=== PATIENT | female | born 1965 | race Caucasian/White ===

== ENCOUNTER 2020-04-11 08:09 | Outpatient (CLI) | payer OTHER, SELFPAY ==
[2020-04-11 08:45] LABS: Basophils Percent Auto 0.5 % (0.2-1.2); Eosinophils Absolute Auto 0.1 K/mm3 (0-0.3); Eosinophils Percent Auto 1.6 % (0-4.4); Hemoglobin 13.7 g/dL (12.0-15.0); Immature Granulocyte Absolute 0.02 K/mm3 (0.00-0.031); Immature Granulocyte Percent A 0.3 % (0-0.5); Lymphocytes Absolute Auto 2.11 K/mm3 (0.9-3.2); Lymphocytes Percent Auto 27.4 % (18.3-44.2); Mean Corpuscular HGB Conc 34.3 g/dl (32-36); Mean Corpuscular Hemoglobin 29.9 pg (26-34); Mean Corpuscular Volume 87.3 fl (80-100); Mean Platelet Volume 11.2 fl (7.4-10.4); Monocytes Absolute Auto 0.6 K/mm3 (0.1-0.6); Monocytes Percent Auto 7.7 % (2.6-8.5); Neutrophils Absolute Auto 4.8 K/mm3 (1.3-6.7); Neutrophils Percent Auto 62.5 % (45.5-73.1); Platelet Count Result 210 k/mm3 (150-375); Red Blood Count 4.58 M/mm3 (4.2-5.4); Red Cell Distribution Width 12.7 % (11.5-14.5); White Blood Count 7.7 K/mm3 (4.5-10.0)
[2020-04-11 08:57] LABS: Add Urine Microscopic? YES; Appearance Urine Clear (Clear); Bacteria Urine Trace /hpf; Bilirubin Urine Negative (Negative); Blood Urine Negative (Negative); Color Urine Yellow (Yellow); Glucose Urine UA Negative (Negative); Ketones Urine Negative (Negative); Leukocyte Esterase Ur Negative LEU/UL (NEGATIVE); Mucus Urine Rare /lpf; Nitrate Urine Negative (Negative); Protein Urine Negative (Negative); RBC Urine 0-2 /hpf (0-2); Specific Grav Ur 1.029 (1.001-1.035); Squamous Epithelial Cell Urine Many /hpf (Few); Urobilinogen Urine Negative mg/dL (<2.0); WBC Urine 0-3 /hpf (0-3)
[2020-04-11 08:59] LABS: Alanine Aminotransferase 27 U/L (4-35); Albumin Level 3.9 g/dL (3.5-5.1); Alkaline Phosphatase 90 U/L (38-126); Anion Gap 6 mmol/L (8-16); Aspartate Amino Transferase 26 U/L (14-36); Bilirubin,Total 0.7 mg/dL (0.2-1.3); Blood Urea Nitrogen 19 mg/dL (7-17); Calcium 9.3 mg/dL (8.4-10.2); Carbon Dioxide 30 mmol/L (22-30); Chloride 105 mmol/L (98-107); Cholesterol 179 mg/dL (0-200); Estimated Glomerular Filt Rate > 60; Glucose 96 mg/dL (65-105); HDL Direct 30 mg/dL; Potassium 3.8 mmol/L (3.4-5.0); Sodium 141 mmol/L (137-145); Triglycerides 165 mg/dL (<150)
[2020-04-11 09:10] LABS: LDL Cholesterol Direct 108 mg/dL
== END 2020-04-11 08:10 | disposition home or self-care (01) ==
PROVIDERS: PCP Internal Medicine; Visit Provider Internal Medicine
DX: E03.9 Hypothyroidism, unspecified (principal); R53.83 Other fatigue; Z51.81 Encounter for therapeutic drug level monitoring; E55.9 Vitamin D deficiency, unspecified
CPT/HCPCS: 36415; 80053; 80061; 81001; 82306; 84439; 84443; 85025

== ENCOUNTER 2020-12-11 17:00 | Outpatient (RCR) | payer OTHER, SELFPAY ==
--- NOTE | 2020-11-07 09:40 | PTOPEVAL ---
PHYSICAL THERAPY EVALUATION Thank you for referring Traci Alcazar to [facility].? Traci was evaluated for the dx of right knee pain. The patient is scheduled to be seen for therapy? 2 x/week for 4 weeks. Please review, sign, date and return this plan of care SERGIO. I agree with and certify that the following plan of care is medically necessary. Referring Physician Date Attending Provider: Lazaro Gonzales *PT Outpatient Evaluation Start: 11/06/20 16:15 Freq: Status: Active Protocol: Document 11/06/20 16:15 MLV (Rec: 11/06/20 17:12 MLV [id number]) Therapy Assessment Status Assessment Status Assessment Status Evaluation Evaluation Information Problem Diagnosis right knee pain Onset June 2020 Cause none Additional Evaluation Detail Patient began having knee pain with no injury. The pt had no trouble with the knee in the past since childhood surgery until this occasion. The pt reports having a limp prior, due to left hip surgeries, but limp is a little worse now due to current pain. The pt currently has pain off and on but the on is severe and can make her buckle at her knees. Climbing stairs will aggravate the pain. The patient works full time paramedic as RN and spends time with family when off work. Subjective Information Pt works out at home with Query Text:As Reported By Patient/ bands and stopped due to pain Family with squat activities and was walking on the treadmill (30 min/day) until her pain flared. Diagnostic Tests X-Rays For This Problem Yes: mild calcifications in right knee Pain Assessment Timing of Pain Assessment Timing of Pain Assessment Assessment Pain Scale Pain Scale Used Numeric (1 - 10) Self Report Pain Assessment Right Knee(s) Reported Pain Level 1 Pain Description Aching,Sharp Pain Frequency Acute Greatest Pain Intensity 10 Pain Aggravating Factors Stair Climbing,Walking,Weight Bearing/Standing Pain Behaviors Limping Pain Score Pain Score 1: Self Report Interventions Used Interventions Used By Clinicians Education Pain Relief Interventio
--- NOTE | 2020-11-29 07:22 | PCPTNOTE ---
Patient called & cancelled scheduled appointment this date due to being unable to make it.
--- NOTE | 2020-12-11 17:38 | PTOPEVAL ---
PHYSICAL THERAPY DISCHARGE NOTE Thank you for referring Traci Alcazar to [facility].? Please review, sign, date and return this plan of care SERGIO. I agree with and certify that the following plan of care is medically necessary. Referring Physician Date Attending Provider: Lazaro Gonzales Discharge Outpatient Past Medical History Past Medical History Source of Past Medical History Patient Musculoskeletal History Hx Back Pain Yes: back injection x 1 Hx Joint Replacement Yes: right MELISSA x 1, left MELISSA x 2 with bone graft on 2nd sx Hx Orthopedic Surgery Yes: right knee surgeries as a child due to strep, growth plates removed Right Knee(s) Reported Pain Level 4 Pain Description Aching Pain Frequency Acute Greatest Pain Intensity 4 Pain Aggravating Factors Stair Climbing,Walking,Weight Bearing/Standing Pain Behaviors Limping Pain Score Pain Score 4: Self Report Interventions Used Interventions Used By Clinicians Electrical Stimulation,Ice, Taping Pain Relief Interventions Used By Heat,Ice,Inactivity/Rest, Patient Position Change Other Alleviating Interventions ibuprofen Lower Extremity Range of Motion General Lower Extremity Range of Motion Reason Not Measured WFL/Left,WFL/Right Gross Lower Extremity Range of Motion knee active motion: left 0-130 Comments ', right 0-130'; pia. hip rotations WFL's but with generalized stiffness (chronic per pt) Lower Extremity Muscle Strength Testing General Lower Extremity Strength Reason Not Measured WNL/Left,WNL/Right Muscle Length Testing Muscle Length Testing Piriformis w/Hip Flexion <90 Degrees (R) Mild Tightness,(L) Mild Tightness Yen's Test Hip Muscle Length (R) WFL,(L) WFL Left Hamstring Length -32 Query Text:(90 - 90 Position) Right Hamstring Length -30 Query Text:(90 - 90 Position) Muscle Length Testing Comments prone knee flexion left 115', right knee 115' General Exercise General Exercises Side Right Exercise Type Active,Isometric,Stretching Exercise Description seated hamstring stretch, Query Text:Record Sets, Reps, hooklying piriformis stretch, Resistance, and Position calf stretch with green strap, prone quad stretch Exercise Comments . PT Clinical Summary Clinical Summary Protocol: PTEVCODE PT Clinical Summary Mrs. Alcazar is a 55 y/o female
== END 2020-12-12 10:30 | disposition home or self-care (01) ==
LOC: ANHPT 17:00
PROVIDERS: PCP Internal Medicine
DX: M25.561 Pain in right knee (principal)
CPT/HCPCS: 97014; 97110; 97140; 97162; G0283

== ENCOUNTER 2021-03-01 08:11 | Outpatient (CLI) | payer OTHER, SELFPAY ==
--- NOTE | ~2021-03-01 | MM_ITS ---
EXAMINATION: MM screening [facility] BI w sergio HISTORY: Screening TECHNIQUE: Craniocaudal and mediolateral oblique 3-D tomosynthesis images were obtained and synthetic 2-D images were generated. CAD analysis was submitted and interpreted. COMPARISON: Comparison to multiple prior studies sequentially, with oldest reviewed study dated 12/16. BREAST PARENCHYMAL COMPOSITION: Breast composed of scattered areas of fibroglandular density. FINDINGS: No significant change to asymmetry in the upper outer quadrant of the right breast. There is a new radiolucent mass in the upper outer quadrant of the left breast anteriorly. IMPRESSION: 1. New left breast mass, upper outer quadrant anteriorly. 2. Additional mammographic views and possible breast ultrasound are recommended. BI-RADS Category 0: Incomplete: Needs additional imaging evaluation. Reviewed, dictated and finalized at location A. IMPRESSION: 1. New left breast mass, upper outer quadrant anteriorly. 2. Additional mammographic views and possible breast ultrasound are recommended . BI-RADS Category 0: Incomplete: Needs additional imaging evaluation.
== END 2021-03-01 08:12 | disposition home or self-care (01) ==
LOC: ANHIMG 08:15
PROVIDERS: PCP Internal Medicine; Visit Provider Student in an Organized Health Care Education/Training Program
DX: Z12.31 Encounter for screening mammogram for malignant neoplasm of breast (principal); N63.21 Unspecified lump in the left breast, upper outer quadrant
CPT/HCPCS: 77063; 77067

== ENCOUNTER 2021-03-23 11:57 | Outpatient (CLI) | payer OTHER, SELFPAY ==
--- NOTE | ~2021-03-23 | MMUS_ITS ---
EXAMINATION: MM diagnostic tenzin LT w sergio, US breast LT limited HISTORY: New anterior upper outer quadrant left breast mass reported on 03/01/2021 screening mammogram examination TECHNIQUE: Additional 3-D tomosynthesis images of the left breast were performed and synthetic 2-D im ages were generated. CAD analysis was submitted and interpreted. High resolution targeted left upper outer quadrant breast ultrasound was performed. COMPARISON: 03/01/2021 bilateral digital screening mammogram FINDINGS: MAMMOGRAPHIC FINDINGS: Approximately 5 x 7.9 mm opacity is noted anteriorly in the outer mid left breast between approximate ly 2:00 and 3:00 position. ULTRASOUND: 12.8 x 3.8 x 16.7 mm parallel sonolucency is noted at 2:00 3 cm from the nipple; there is no internal vascularity or posterior shadowing. IMPRESSION: 1. Benign finding 2. Routine mammographic screening is recommended BI-RADS Category 2: Benign finding(s). Reviewed, dictated and finalized at location A. IMPRESSION: 1. Benign finding 2. Routine mammographic screening is recommended BI-RADS Category 2: Benign finding(s).
== END 2021-03-23 11:58 | disposition home or self-care (01) ==
PROVIDERS: PCP Internal Medicine; Visit Provider Internal Medicine
DX: N63.21 Unspecified lump in the left breast, upper outer quadrant (principal)
CPT/HCPCS: 76642; 77061; 77065; G0279

== ENCOUNTER 2021-04-10 09:53 | Outpatient (CLI) | payer OTHER, SELFPAY ==
[2021-04-10 10:15] LABS: Basophils Percent Auto 0.6 % (0.2-1.2); Eosinophils Absolute Auto 0.1 K/mm3 (0-0.3); Hematocrit 39.3 % (37.0-47.0); Hemoglobin 13.6 g/dL (12.0-15.0); Immature Granulocyte Absolute 0.01 K/mm3 (0.00-0.031); Immature Granulocyte Percent A 0.1 % (0-0.5); Lymphocytes Absolute Auto 1.83 K/mm3 (0.9-3.2); Lymphocytes Percent Auto 25.8 % (18.3-44.2); Mean Corpuscular HGB Conc 34.6 g/dl (32-36); Mean Corpuscular Hemoglobin 30.3 pg (26-34); Mean Corpuscular Volume 87.5 fl (80-100); Mean Platelet Volume 10.1 fl (7.4-10.4); Monocytes Absolute Auto 0.6 K/mm3 (0.1-0.6); Monocytes Percent Auto 7.9 % (2.6-8.5); Neutrophils Absolute Auto 4.5 K/mm3 (1.3-6.7); Neutrophils Percent Auto 63.6 % (45.5-73.1); Platelet Count Result 248 k/mm3 (150-375); Red Blood Count 4.49 M/mm3 (4.2-5.4); Red Cell Distribution Width 12.8 % (11.5-14.5); White Blood Count 7.1 K/mm3 (4.5-10.0)
[2021-04-10 10:37] LABS: Add Urine Microscopic? YES; Appearance Urine Clear (Clear); Bacteria Urine Trace /hpf; Bilirubin Urine Negative (Negative); Blood Urine Negative (Negative); Color Urine Yellow (Yellow); Glucose Urine UA Negative (Negative); Ketones Urine Negative (Negative); Leukocyte Esterase Ur Negative LEU/UL (Negative); Mucus Urine Rare /lpf; Nitrate Urine Negative (Negative); Protein Urine 1+ mg/dL (Negative); RBC Urine 0-2 /hpf (0-2); Squamous Epithelial Cell Urine Occasional /hpf (Few); Urobilinogen Urine Negative mg/dL (<2.0); WBC Urine 0-3 /hpf
[2021-04-10 10:40] LABS: Alanine Aminotransferase 26 U/L (4-35); Albumin Level 4.2 g/dL (3.5-5.1); Alkaline Phosphatase 86 U/L (38-126); Anion Gap 8 mmol/L (8-16); Aspartate Amino Transferase 25 U/L (14-36); Bilirubin,Total 0.7 mg/dL (0.2-1.3); Blood Urea Nitrogen 18 mg/dL (7-17); Calcium 9.4 mg/dL (8.4-10.2); Carbon Dioxide 28 mmol/L (22-30); Chloride 107 mmol/L (98-107); Cholesterol 173 mg/dL (0-200); Estimated Glomerular Filt Rate > 60; Glucose 102 mg/dL (65-110); HDL Direct 25 mg/dL; Potassium 3.7 mmol/L (3.4-5.0); Sodium 143 mmol/L (137-145); Triglycerides 137 mg/dL (<150)
[2021-04-10 10:50] LABS: LDL Cholesterol Direct 107 mg/dL
[2021-04-10 11:23] LABS: Vitamin D 25 Hydroxy 83.8 ng/mL
== END 2021-04-10 09:54 | disposition home or self-care (01) ==
PROVIDERS: PCP Internal Medicine; Visit Provider Internal Medicine
DX: Z00.00 Encounter for general adult medical examination without abnormal findings (principal)
CPT/HCPCS: 36415; 80053; 80061; 81001; 82306; 84443; 85025

== ENCOUNTER 2022-06-27 07:57 | Outpatient (CLI) | payer OTHER, SELFPAY ==
[2022-06-27 09:18] LABS: Basophils Percent Auto 0.5 % (0.2-1.2); Eosinophils Absolute Auto 0.1 K/mm3 (0-0.3); Eosinophils Percent Auto 1.4 % (0-4.4); Hematocrit 41.5 % (37.0-47.0); Hemoglobin 13.9 g/dL (12.0-15.0); Immature Granulocyte Absolute 0.04 K/mm3 (0.00-0.031); Immature Granulocyte Percent A 0.5 % (0-0.5); Lymphocytes Absolute Auto 2.08 K/mm3 (0.9-3.2); Lymphocytes Percent Auto 25.9 % (18.3-44.2); Mean Corpuscular HGB Conc 33.5 g/dl (32-36); Mean Corpuscular Hemoglobin 29.8 pg (26-34); Mean Corpuscular Volume 88.9 fl (80-100); Mean Platelet Volume 11.3 fl (7.4-10.4); Monocytes Absolute Auto 0.6 K/mm3 (0.1-0.6); Monocytes Percent Auto 7.7 % (2.6-8.5); Neutrophils Absolute Auto 5.2 K/mm3 (1.3-6.7); Platelet Count Result 238 k/mm3 (150-375); Red Blood Count 4.67 M/mm3 (4.2-5.4); Red Cell Distribution Width 13.2 % (11.5-14.5)
[2022-06-27 09:24] LABS: Alanine Aminotransferase 37 U/L (6-35); Albumin Level 4.3 g/dL (3.5-5.1); Alkaline Phosphatase 88 U/L (38-126); Anion Gap 9 mmol/L (8-16); Aspartate Amino Transferase 30 U/L (14-36); Bilirubin,Total 0.8 mg/dL (0.2-1.3); Blood Urea Nitrogen 23 mg/dL (7-17); Calcium 8.8 mg/dL (8.4-10.2); Carbon Dioxide 25 mmol/L (22-30); Chloride 108 mmol/L (98-107); Cholesterol 213 mg/dL (0-200); Estimated Glomerular Filt Rate > 60; Glucose 94 mg/dL (65-110); HDL Direct 34 mg/dL; Potassium 3.8 mmol/L (3.4-5.0); Sodium 142 mmol/L (137-145); Triglycerides 186 mg/dL (<150)
[2022-06-27 09:35] LABS: LDL Cholesterol Direct 117 mg/dL
[2022-06-27 10:12] LABS: Hemoglobin A1C 5.4 % (<5.7)
== END 2022-06-27 07:58 | disposition home or self-care (01) ==
LOC: ANHLAB 08:03
DX: Z00.00 Encounter for general adult medical examination without abnormal findings (principal)
CPT/HCPCS: 36415; 80053; 80061; 83036; 84443; 85025

== ENCOUNTER 2022-07-22 14:34 | Outpatient (CLI) | payer OTHER, SELFPAY ==
--- NOTE | 2022-07-22 | ECHO_ITS ---
Patient Info Name: Traci Zuniga Depagusto Age: 56 years : 1965 Gender: Female Ht: 64 in Wt: 200 lbs BSA: 2.06 m2 HR: 90 bpm BP: 116 / 83 mmHg Heart Rhythm: Sinus Rhythm Technical Quality: Fair Exam Date: 07/22/2022 3:05 PM Exam Location: [facility] Pulmonary Patient Status: Outpatient Admit Date: 07/22/2022 Staff Ordering Physician: Monika John MD Typist: Tabitha Chi RDCS Attending Provider: Monika John MD Exam Type: CA echo doppler color flow Study Info Indications R00.2 - Palpitations Strain analysis performed. Complete two-dimensional, color flow and Doppler transthoracic echocardiogram is performed. Summary 1. Complete two-dimensional, color flow and Doppler transthoracic echocardiogram is performed. 2. Left ventricular chamber dimension is normal. 3. Left ventricular systolic function is normal, estimated at 60-65%. 4. The left ventricular diastolic function is grade I diastolic dysfunction. 5. E/e' 9 is minimally elevated. 6. Global longitudinal strain is normal at -19.0%. 7. No pulmonary hypertension, estimated pulmonary arterial systolic pressure is 28 mmHg. Left Ventricle E/e' 9 is minimally elevated. Global longitudinal strain is normal at -19.0%. Left ventricular chamber dimension is normal. Left ventricular systolic function is normal, estimated at 60-65%. The left ventricular diastolic function is grade I diastolic dysfunction. Right Ventricle Right ventricular chamber dimension is not well visualized. Left Atria Left atrial chamber dimension is normal. Right Atria Right atrial chamber dimension is normal. Aortic Valve The aortic valve is trileaflet. There is no aortic valve stenosis. There is no aortic valve regurgitation. Pulmonic Valve There is no pulmonic regurgitation. Mitral Valve There is no mitral valve stenosis. There is no mitral valve regurgitation. Tricuspid Valve There is no tricuspid valve regurgitation. No pulmonary hypertension, estimated pulmonary arterial systolic pressure is 28 mmHg. Pericardium/Pleural There is no pericardial effusion. Inferior Vena Cava Normal inferior vena cava with >50% collapse upon inspiration consistent with normal right atrial pressure, 5 mmHg. Aorta The aortic root size at the sinus of Valsalva is normal. Left Ventricular Outflow Tract Name Value Normal LVOT 2D LVOT Diameter 2.0 cm LVOT Doppler LVOT Peak Gradient 3 mmHg LVOT Mean Gradient 1 mmHg LVOT VTI 14 cm LVOT VTI/AV VTI Ratio 0.6 LVOT Stroke Volume 42 ml LVOT CO 3.0 l/min LVOT CI 1.5 l/min/m2 Pulmonic Valve Name Value Normal RVOT Doppler RVOT
--- NOTE | 2022-07-26 12:41 | WPDHOLTEREM ---
Holter/Event Monitor Holter/Event Monitor Date of procedure: 07/22/22 Holter/Event Procedure: 48 Hr Holter Monitor Indications: Palpitations Conclusion: 1. 48 hour holter monitor on 07/22/22. 2. Underlying rhythm is sinus rhythm with sinus arrhythmia. HR range 47-140 bpm; average HR 76 bpm. 3. There is 1 premature supraventricular complex. No supraventricular tachycardia. 4. There are 3,812 premature ventricular complexes, 216 ventricular trigeminy. No ventricular tachycardia. 5. No sinoatrial or atrioventricular blocks. No significant pauses greater than 2 seconds. 6. Patient reports symptoms of fluttering, skipped beats which demonstrate sinus rhythm, HR range 74-85 bpm.
== END 2022-07-22 14:35 | disposition home or self-care (01) ==
LOC: ANHCARD 14:37
DX: I51.9 Heart disease, unspecified (principal)
CPT/HCPCS: 93225; 93226; 93306

== ENCOUNTER 2023-02-14 08:19 | Outpatient (CLI) | payer OTHER, SELFPAY ==
--- NOTE | ~2023-02-14 | MM_ITS ---
EXAMINATION: MM screening [facility] BI w sergio HISTORY: Screening TECHNIQUE: Craniocaudal and mediolateral oblique 3-D tomosynthesis images were obtained and synthetic 2-D images were generated. CAD analysis was submitted and interpreted. COMPARISON: Comparison to multiple prior studies sequentially, with oldest reviewed study dated 12/16. BREAST PARENCHYMAL COMPOSITION: There are scattered areas of fibroglandular density. FINDINGS: There is no evidence of suspicious mass, calcification, or architectural distortion to sugg est malignancy in either breast. There has been no suspicious interval change. IMPRESSION: 1. No mammographic evidence of malignancy. 2. Recommend routine screening mammography in one year. BI-RADS Category 1: Negative Reviewed, dictated and finalized at location A.
== END 2023-02-14 08:20 | disposition home or self-care (01) ==
PROVIDERS: PCP Family Medicine; Visit Provider Obstetrics & Gynecology
DX: Z12.31 Encounter for screening mammogram for malignant neoplasm of breast (principal)
CPT/HCPCS: 77063; 77067

== ENCOUNTER 2023-05-05 08:06 | Outpatient (CLI) | payer OTHER, SELFPAY ==
[2023-05-05 08:48] LABS: Basophils Absolute Auto 0.1 K/mm3 (0.0-0.1); Basophils Percent Auto 0.8 % (0.2-1.2); Eosinophils Absolute Auto 0.1 K/mm3 (0-0.3); Eosinophils Percent Auto 1.7 % (0-4.4); Hematocrit 41.4 % (37.0-47.0); Hemoglobin 13.6 g/dL (12.0-15.0); Immature Granulocyte Absolute 0.02 K/mm3 (0.00-0.031); Immature Granulocyte Percent A 0.3 % (0-0.5); Lymphocytes Absolute Auto 1.65 K/mm3 (0.9-3.2); Lymphocytes Percent Auto 25.1 % (18.3-44.2); Mean Corpuscular HGB Conc 32.9 g/dl (32-36); Mean Corpuscular Hemoglobin 29.1 pg (26-34); Mean Corpuscular Volume 88.7 fl (80-100); Monocytes Absolute Auto 0.5 K/mm3 (0.1-0.6); Monocytes Percent Auto 7.1 % (2.6-8.5); Neutrophils Absolute Auto 4.3 K/mm3 (1.3-6.7); Platelet Count Result 213 k/mm3 (150-375); Red Blood Count 4.67 M/mm3 (4.2-5.4); Red Cell Distribution Width 13.2 % (11.5-14.5); White Blood Count 6.6 K/mm3 (4.5-10.0)
[2023-05-05 08:57] LABS: Potassium 3.6 mmol/L (3.4-5.0)
[2023-05-05 09:01] LABS: Alanine Aminotransferase 25 U/L (6-35); Albumin Level 4.1 g/dL (3.5-5.1); Alkaline Phosphatase 70 U/L (38-126); Anion Gap 5 mmol/L (8-16); Aspartate Amino Transferase 25 U/L (14-36); Blood Urea Nitrogen 18 mg/dL (7-17); Calcium 9.1 mg/dL (8.4-10.2); Carbon Dioxide 28 mmol/L (22-30); Chloride 106 mmol/L (98-107); Cholesterol 182 mg/dL (0-200); Estimated Glomerular Filt Rate > 60; Glucose 94 mg/dL (65-110); HDL Direct 27 mg/dL; Sodium 139 mmol/L (137-145); Triglycerides 173 mg/dL (<150)
[2023-05-05 09:09] LABS: LDL Cholesterol Direct 102 mg/dL
== END 2023-05-05 08:07 | disposition home or self-care (01) ==
LOC: ANHLAB 08:09
PROVIDERS: PCP Family Medicine; Visit Provider Family Medicine
DX: Z00.00 Encounter for general adult medical examination without abnormal findings (principal)
CPT/HCPCS: 36415; 80053; 80061; 83036; 85025

== ENCOUNTER 2023-05-12 10:08 | Outpatient (CLI) | payer OTHER, SELFPAY ==
--- NOTE | ~2023-05-12 | XR_ITS ---
Lumbosacral Spine: AP, oblique, and lateral views Clinical History: Pain Findings: The normal lordotic curve is maintained. No fracture evident. There is 18 mm anterolisthesi s of L4 over L5. There are underlying bilateral L4 pars interarticularis defects. There is moderate f acet arthropathy throughout the lumbar spine. There is advanced degenerative disc narrowing at L4-L5. The sacroiliac joints are normally outlined. Impression: No significant abnormality. Bilateral L4 pars interarticularis defects, with 18 mm anterolisthesis of L4 over L5. Advanced degenerative disc narrowing at L4-L5. Moderate facet arthropathy throughout the lumbar spine. Reviewed, dictated and finalized at location . MOTIVE EXHAUST EMISSIONS TECHNICIAN Impression: No significant abnormality. Bilateral L4 pars interarticularis defects, with 18 mm anterolisthesis of L4 over L5. Advanced degenerative disc narrowing at L4-L5. Moderate facet arthropathy throughout the lumbar spine.
--- NOTE | ~2023-05-12 | XR_ITS ---
AP and lateral views of the right hip Clinical history: Pain Findings: No acute fracture or dislocation is seen. Right hip arthroplasty in place. No hardware comp lication is evident. Soft tissues are unremarkable. Impression: No acute abnormality seen. Right hip arthroplasty in place. Reviewed, dictated and finalized at location . ATIONAL PROGRAM DIRECTOR Impression: No acute abnormality seen. Right hip arthroplasty in place.
== END 2023-05-12 10:09 | disposition home or self-care (01) ==
LOC: ANHIMG 10:10
PROVIDERS: PCP Family Medicine; Visit Provider Family Medicine
DX: M54.50 Low back pain, unspecified (principal); M43.16 Spondylolisthesis, lumbar region; Z96.641 Presence of right artificial hip joint
CPT/HCPCS: 72110; 73502

== ENCOUNTER 2023-11-21 12:13 | Emergency (ER) | payer OTHER, SELFPAY ==
--- NOTE | ~2023-11-21 | XR_ITS ---
Clinical Indication: Chest pain PA and lateral views of the chest: Comparison: 09/20/2015 Findings: The lungs are clear, without evidence of focal consolidation or pleural effusion. Cardiome diastinal silhouette is within normal limits. Bones and soft tissues are unremarkable. Impression: Normal chest. Reviewed, dictated and finalized at location . Impression: Normal chest.
--- NOTE | ~2023-11-21 | CT_ITS ---
Clinical Indication: Chest pain CT Scan of the Chest with Contrast: Technique: Contiguous sections were acquired throughout the chest after intravenous administration of 100 cc of Omnipaque 350. Dose reduction technique was used on this scan by utilizing automated expos ure control and iterative reconstruction technique. The dose-length product (DLP) was 773.78 mGy-cm. Findings: There is no evidence of any significant mediastinal, hilar or axillary lymphadenopathy. There is no f illing defect in the pulmonary arterial tree to suggest pulmonary embolus. There is no evidence of ao rtic dissection or aneurysm. There is no evidence of pleural or pericardial effusion. The lungs are clear. No pulmonary nodules or infiltrates are noted. Images through the upper abdomen reveal no abnormalities. Impression: No evidence of pulmonary embolus, aortic dissection, or aortic aneurysm. Clear lungs. Reviewed, dictated and finalized at [facility]. Impression: No evidence of pulmonary embolus, aortic dissection, or aortic aneurysm. Clear lungs.
--- NOTE | 2023-11-21 12:15 | ECG_ITS ---
SEE SCANNED COPY FOR CONFIRMED REPORT MTDD
[2023-11-21 12:17] VITALS: BP 136/82; PULSE 68; RESP 17; TEMP 36.7; O2SAT 99
[2023-11-21 12:27] VITALS: PULSE 60
[2023-11-21 12:38] LABS: Basophils Percent Auto 0.6 % (0.2-1.2); Eosinophils Absolute Auto 0.1 K/mm3 (0-0.3); Eosinophils Percent Auto 1.2 % (0-4.4); Hematocrit 43.1 % (37.0-47.0); Hemoglobin 14.6 g/dL (12.0-15.0); Immature Granulocyte Absolute 0.01 K/mm3 (0.00-0.031); Immature Granulocyte Percent A 0.1 % (0-0.5); Lymphocytes Absolute Auto 2.13 K/mm3 (0.9-3.2); Lymphocytes Percent Auto 31.6 % (18.3-44.2); Mean Corpuscular HGB Conc 33.9 g/dl (32-36); Mean Corpuscular Hemoglobin 29.7 pg (26-34); Mean Corpuscular Volume 87.6 fl (80-100); Mean Platelet Volume 11.3 fl (7.4-10.4); Monocytes Absolute Auto 0.6 K/mm3 (0.1-0.6); Monocytes Percent Auto 8.2 % (2.6-8.5); Neutrophils Absolute Auto 3.9 K/mm3 (1.3-6.7); Neutrophils Percent Auto 58.3 % (45.5-73.1); Platelet Count Result 228 k/mm3 (150-375); Red Blood Count 4.92 M/mm3 (4.2-5.4); Red Cell Distribution Width 12.9 % (11.5-14.5); White Blood Count 6.7 K/mm3 (4.5-10.0)
[2023-11-21 12:43] LABS: Alanine Aminotransferase 25 U/L (6-35); Albumin Level 4.6 g/dL (3.5-5.1); Alkaline Phosphatase 81 U/L (38-126); Anion Gap 8 mmol/L (4-12); Aspartate Amino Transferase 27 U/L (14-36); Blood Urea Nitrogen 22 mg/dL (7-17); Calcium 9.4 mg/dL (8.4-10.2); Carbon Dioxide 25 mmol/L (22-30); Chloride 107 mmol/L (98-107); Estimated CRCL calculation 82 ml/min; Estimated Glomerular Filt Rate > 60; Glucose 99 mg/dL (65-110); Lipase 136 U/L (23-300); Potassium 3.4 mmol/L (3.4-5.0); Sodium 140 mmol/L (137-145)
[2023-11-21 12:50] LABS: INR 0.9; Prothrombin Time 12.8 Seconds (11.1-14.7)
[2023-11-21 12:51] LABS: Partial Thromboplastin Time 29.4 Seconds (22.3-36.8)
[2023-11-21 12:55] LABS: Troponin I < 0.012 ng/mL (0.000-0.034)
[2023-11-21 12:58] LABS: D Dimer 0.61 ug/mL (<0.48)
[2023-11-21] MEDS: KETOROLAC 15 MG/ML VIAL (*BKC) IV PUSH (13:07)
[2023-11-21 14:00] VITALS: BP 107/70; PULSE 56; RESP 16; O2SAT 99
--- NOTE | 2023-11-21 14:09 | ED.CHESTPAIN ---
HPI - Chest Pain General Chief Complaint: Chest Pain Stated Complaint: chest pain Time Seen by Provider: 11/21/23 12:15 Source: patient Mode of arrival: ambulatory Limitations: no limitations History of Present Illness HPI narrative: 58-year-old with a history of hypertension status post gallbladder disease, hip replacement here with complaints of sudden onset of right-sided chest pain. Patient states that 2 was trying to pick something up from the floor developed a sudden onset of pain which made her short of breath as well as nauseated. She denies any fever or chills no history of cough. No previous history of CAD. Related Data Home Medications Medication Instructions Recorded Confirmed cholecalciferol (vitamin D3) 50 50 mcg PO DAILY 12/28/19 01/30/23 mcg (2,000 unit) capsule losartan 50 mg-hydrochlorothiazide 1 tablet PO DAILY 12/28/19 01/30/23 12.5 mg tablet ascorbate calcium (vitamin C) 500 500 mg PO DAILY 01/30/23 01/30/23 mg tablet Allergies Allergy/AdvReac Type Severity Reaction Status Date / Time No Known Allergies Allergy Verified 11/21/23 12:27 Review of Systems Review of Systems: All systems reviewed & are unremarkable except as noted in HPI and below Constitutional: Constitutional: Reports no additional constitutional complaints Eyes: Eyes: Reports no additional eye complaints ENT: Reports system reviewed and no additional complaints, except as documented Cardiovascular: Cardiovascular: Reports as per HPI Respiratory: Respiratory: Reports no additional respiratory complaints Gastrointestinal: Gastrointestinal: Reports no additional gastrointestinal complaints Musculoskeletal: Musculoskeletal: Reports no additional musculoskeletal complaints Neurologic: Reports system reviewed and no additional complaints, except as documented [facility] Past Medical History Medical History Arthritis Hypertension Migraines Surgical History Surgical History History of hip replacement History of tubal ligation Previous section x 2 Family History Family History Father Hypertension, Onset Age: 62 Mother Cerebrovascular accident Other Family history of malignant neoplasm of breast Social History Social History Smoking status: Never smoker Second hand tobacco smoke exposure: No Alcohol intake: never Substance use: never Lack of Transportation: No Current Housing: I Have Housing Concerned About Future Housing: No Difficulty Paying Gas/Electric Bills: No Difficulty Paying for Meds: No Currently Unemployed: No Education: Master's Degree or Higher Difficulty w/ Childcare or Family Care: No Living arrangements: with family Occupation/Education: occupation Gender identity (if verbalized by the patient): Female Sexual Orientation (if Verbalized by the Patient): Straight or Heterosexual Spiritual care concerns: No Agree to blood products: Yes Exam Narrative: GENERAL: Well-appearing, well-nourished, and in no acute distress. HEAD: Normocephalic, atraumatic. EYES: PERRLA and EOMI. ENT: Nares clear, no rhinorrhea or epistaxis. Mucous membranes moist. NECK: Supple. CHEST: Clear to auscultation. No respiratory distress. HEART: Regular rate and rhythm. No murmur heard. Normal peripheral pulses. ABDOMEN: Soft, nontender, nondistended, normal active bowel sounds. EXTREMITIES: Normal range of motion. No edema. SKIN: Warm, dry, no rash. NEURO: No focal deficits. Alert and oriented x3. PSYCH: Normal mood and affect. Course Course Emergency Course: Patient is given IV Toradol pain slightly improved did inform her and has been about her lab work, CT findings she declined any opioid this time. She feels comfortable going home most lik
== END 2023-11-21 14:27 | disposition home or self-care (01) ==
PROVIDERS: Emergency Provider Family Medicine; PCP Family Medicine
DX: R07.9 Chest pain, unspecified (principal); I10 Essential (primary) hypertension; Z96.649 Presence of unspecified artificial hip joint
CPT/HCPCS: 36415; 71046; 71275; 80053; 83690; 84484; 85025; 85380; 85610; 85730; 93005; 96374; 99284; J1885; Q9967

== ENCOUNTER 2024-02-13 11:30 | Emergency (ER) | payer OTHER, SELFPAY ==
[2024-02-13 11:51] VITALS: BP 129/87; PULSE 90; RESP 18; TEMP 36.8; O2SAT 98
[2024-02-13 11:54] VITALS: BP 129/87; PULSE 90; RESP 18; TEMP 36.8; O2SAT 98
--- NOTE | 2024-02-13 12:09 | ED.EYEPROB ---
HPI - Eye Problem General Chief complaint: Eye Problems Stated complaint: RT Eye swelling Time Seen by Provider: 02/13/24 11:55 Source: patient Mode of arrival: ambulatory Limitations: no limitations History of Present Illness HPI Narrative: Traci is a 58-year-old female presents today with complaints right eyelid swelling and irritation x3 days. She had corrective eye lenses replacement surgery at the end of November. She states she recently started using new mascara when she noticed her right upper eyelid was becoming more irritated so she stopped using it. She also thought it might of been allergies and has been taking allergy medicine without improvement. She denies any excessive tearing, discharge, or visual changes. Related Data Home Medications Medication Instructions Recorded Confirmed cholecalciferol (vitamin D3) 50 50 mcg PO DAILY 12/28/19 01/30/23 mcg (2,000 unit) capsule losartan 50 mg-hydrochlorothiazide 1 tablet PO DAILY 12/28/19 01/30/23 12.5 mg tablet ascorbate calcium (vitamin C) 500 500 mg PO DAILY 01/30/23 01/30/23 mg tablet Allergies Allergy/AdvReac Type Severity Reaction Status Date / Time No Known Allergies Allergy Verified 02/13/24 11:53 Review of Systems Review of Systems: Pertinent positives per HPI. Patient denies any fever, chills, rash, headache, visual changes, dizziness, cough, runny nose, sore throat, shortness of breath, chest pain, palpitations, nausea, vomiting, diarrhea, constipation, abdominal pain, or any urinary issues. [facility] Past Medical History Medical History Arthritis Hypertension Migraines Surgical History Surgical History History of hip replacement History of tubal ligation Previous section x 2 Family History Family History Father Hypertension, Onset Age: 62 Mother Cerebrovascular accident Other Family history of malignant neoplasm of breast Social History Social History Smoking status: Never smoker Second hand tobacco smoke exposure: No Alcohol intake: never Substance use: never Lack of Transportation: No Current Housing: I Have Housing Concerned About Future Housing: No Difficulty Paying Gas/Electric Bills: No Difficulty Paying for Meds: No Currently Unemployed: No Education: Master's Degree or Higher Difficulty w/ Childcare or Family Care: No Living arrangements: with family Occupation/Education: occupation Gender identity (if verbalized by the patient): Female Sexual Orientation (if Verbalized by the Patient): Straight or Heterosexual Spiritual care concerns: No Agree to blood products: Yes Comments At the time of my signature, I reviewed and agree with the nursing past medical, surgical, social, and family history. There is no relevant family history pertinent to the patient complaint. Exam Narrative: General: Well-developed, well nourished, in no apparent distress Head: Normocephalic, atraumatic Eyes: Pupils equally round and reactive to light bilaterally, EOM intact, sclera and conjunctive clear, no discharge, right upper eyelid erythematous with mild crusting and swelling. Neck: Supple, trachea midline. Course Course Emergency Course: Portions of this record may have been created with voice recognition software. Level of Care: Express Care Visit Vital Signs Vital signs: Vital Signs Temperature 36.8 C 02/13/24 11:51 Pulse Rate 90 02/13/24 11:51 Respiratory Rate 18 02/13/24 11:51 Blood Pressure 129/87 02/13/24 11:51 Pulse Oximetry 98 02/13/24 11:51 Oxygen Delivery Room Air 02/13/24 11:51 Temperature 36.8 C 02/13/24 11:54 Pulse Rate 90 02/13/24 11:54 Respiratory Rate 18 02/13/24 11:54 Blood Pressur
== END 2024-02-13 12:15 | disposition home or self-care (01) ==
PROVIDERS: Emergency Provider Nurse Practitioner Family; PCP Family Medicine
DX: H01.001 Unspecified blepharitis right upper eyelid (principal); I10 Essential (primary) hypertension; M19.90 Unspecified osteoarthritis, unspecified site
CPT/HCPCS: 99213; G0463

== ENCOUNTER 2024-09-07 09:34 | Outpatient (CLI) | payer OTHER, SELFPAY ==
[2024-09-07 10:23] LABS: Hematocrit 42.4 % (37.0-47.0); Hemoglobin 14.2 g/dL (12.0-15.0); Mean Corpuscular HGB Conc 33.5 g/dl (32-36); Mean Corpuscular Hemoglobin 29.4 pg (26-34); Mean Corpuscular Volume 87.8 fl (80-100); Mean Platelet Volume 11.5 fl (7.4-10.4); Platelet Count Result 215 k/mm3 (150-375); Red Blood Count 4.83 M/mm3 (4.2-5.4); Red Cell Distribution Width 12.8 % (11.5-14.5); White Blood Count 6.7 K/mm3 (4.5-10.0)
--- OUTSIDE RECORDS SUMMARY | 2024-09-07 10:31 | XMS_ITS | Encounter Summary ---
Author Organization [facility] Address [address] [place] [address] Care Team Providers Care Endo Tech Name Role Phone Unavailable Primary Care Provider Unavailabl e Encounter Details Date Type Department Care Team (Late st Contact Info) Description 12/10/2004 Outpatient Historical [facility] 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
--- OUTSIDE RECORDS SUMMARY | 2024-09-07 10:31 | XMS_ITS | Patient Health Record ---
Author Organization [facility] Address [address] [place] [address] Care Team Providers Care Lamp Tester And Inspector Name Role Phone Sandeep (Retired) Bubba CROCKER Primary Care Provider Unavailable DIVYA CROCKER, LYNN Unavailable REASON FOR REFERRAL No Information PLAN OF TREATMENT Pending Test Test Name Order Date Colonoscopy 10/14/2018 Insurance Providers Payer Name Payer Address Payer Phone Subscriber Number Group Number Insured Name Patient Relationship to Insured Coverage Start Date Coverage End Date [facility] [address] [address] [place], [place] [id number] Traci Alcazar Self - patient is the insured
--- OUTSIDE RECORDS SUMMARY | 2024-09-07 10:31 | XMS_ITS | Encounter Summary ---
Author Organization [facility] Address [address] [place] [address] Care Team Providers Care Truck Repair Supervisor Name Role Phone Unavailable Primary Care Provider Unavailabl e Encounter Details Date Type Department Care Team (Late st Contact Info) Description 12/10/2004 Outpatient Historical [facility] Internal Medicine 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
--- OUTSIDE RECORDS SUMMARY | 2024-09-07 10:31 | XMS_ITS | Encounter Summary ---
Author Organization [facility] Address [address] [place] [address] Care Team Providers Care Hospice Consultant Name Role Phone Unavailable Primary Care Provider Unavailabl e Encounter Details Date Type Department Care Team (Late st Contact Info) Description 12/03/2004 Outpatient Historical [facility] Internal Medicine 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
--- OUTSIDE RECORDS SUMMARY | 2024-09-07 10:31 | XMS_ITS | Clinical Summary ---
Author Organization [facility] A Address [address] [place] [address] Care Team Providers Care Post Adoption Coordinator Name Role Phone Monika Llanos MD Primary Care Provide r Allergies No known active allergies Medications cholecalciferol (VITAMIN D3) 4,000 unit capsule 1 po daily 0 0 06/01/2015 Active MULTIVIT 11-[id number] 6-DHA ORAL Take by mouth Active losartan-hydroCH LOROthiazide (HYZAAR) 50-12.5 mg per tablet TAKE 1 TABLET BY MOUTH DAILY 90 tablet 3 04/30/2023 Active cyclobenzaprine (FLEXERIL) 5 mg tablet Take 1 tablet (5 mg total) by mouth 3 (three) times a day as needed for muscle spasms for up to 15 days 30 tablet 05/08/2023 Active Active Problems Problem Noted Date Diagnosed Date Acute right-sided low back pain without sciatica 05/08/2023 Assessment & Plan (05/08/2023 8:31 AM BIOTECHNOLOGIST): New concern 2/2 muscle spasm Will get xray of the lumbar spine and right hip Sent flexeril 5mg Continue with heat and ibuprofen F/u in 2 months, if no improvement will get an MRI and refer to pain management Palpitations 07/04/2022 Assessment & Plan (08/27/2022 5:11 PM BIOTECHNOLOGIST): Will get records for holter and echo Recommend starting the metoprolol Still having palpitations Referral to cardio given Assessment & Plan (07/04/2022 6:28 PM BIOTECHNOLOGIST): New, worsening EKG in office showed PVCs 48hr holter monitor and echo Start metoprolol 12.5mg bid F/u in 2 weeks Pending results can consider cardio referral and stress test Encounter for wellness examination 05/06/2022 Assessment & Plan (05/07/2023 2:56 PM BIOTECHNOLOGIST): Labs reviewed and discussed Flu:gets through her job Colonoscopy:uptodate Pap smear:follows with ob Mammo:follows with ob F/u in 1 year for annual Assessment & Plan (05/07/2022 8:58 AM BIOTECHNOLOGIST): Ordered CBC, cmp, lipid, hgb a1c, TSH, and free t4 Flu:gets through her job Colonoscopy:uptodate Pap smear:follows with ob Mammo:follows with ob F/u in 1 year for annual Essential hypertension 09/22/2017 Assessment & Plan (05/07/2023 2:55 PM BIOTECHNOLOGIST): Bp in the office today BP Readings from Last 1 Encounters: 08/26/22 120/70 Continue current regimen of losartan hctz 50 12.5mg daily and metoprolol 12.5mg twice a day Recommend DASH diet, heart-healthy lifestyle, exercise. Discussed the risks of hypertension. F/u in 6 months Assessment & Plan (08/26/2022 3:21 PM BIOTECHNOLOGIST): Bp in the office today BP Readings from Last 1 Encounters: 08/26/22 120/70 Continue current regimen Recommend DASH diet, heart-healthy lifestyle, exercise. Discussed the risks of hypertension. F/u at annual Assessment & Plan (05/07/2022 8:44 AM BIOTECHNOLOGIST): Bp in the office today BP Readings from Last 1 Encounters: 05/01/21 122/80 Continue current regimen of losartan hctz 50 12.5mg daily Recommend DASH diet, heart-healthy lifestyle, exercise. Discussed the risks of hypertension. F/u in 1 year for annual Assessment & Plan (09/22/2017 2:28 PM CDT): Blood pressure is slightly higher in office today than ideal. Recommended close follow-up outpatient regarding any signs or symptoms of hypertension. Continue losartan with hydrochlorothiazide as previously recommended along with low- sodium diet heart healthy exercise as tolerated BMI 34.0-34.9,adult 09/22/2017 Assessment & Plan (05/08/2023 8:32 AM BIOTECHNOLOGIST): She was counseled on the importance of maintaining a healthy weight and the risks of obesity. Weight loss recommended. Encourage 150min/ week of exercise Encourage 1500 calories in a day for weight loss Assessment & Plan (06/09/2018 11:41 AM BIOTECHNOLOGIST): Heart healthy diet, increasing exercise (after this acute tendinitis as limited excessive weight bearing/exercise was amused at this time) to assist with overall heart health and weight control Assessment & Plan (09/22/2017 2:28 PM CDT): Recommended patient to continue to increase heart healthy diet with adequate fruits, vegetables, and plenty of water along with mild-moderate daily exercise as tolerated. Generalized osteoarthritis 11/13/2013 Overview (10/03/2016): GENERAL OSTEOARTHROSIS Resolved Problems Problem Noted Date Diagnosed Date Resolved Date Right maxillary sinusitis 01/27/2019 Assessment & Plan (01/27/2019 12:02 PM CDT): Initiating Augmentin therapy with prednisone burst, cold compresses, OTC Flonase or Nasacort, and ibuprofen or acetaminophen to assist with acute discomfort/sinus pain as well. I did encourage her to F/U in office with persistent or little improvement sx after 48 hours antibiotics. Use OTC Telugu yogurt or probiotics with antibiotic course was advised. Right ankle tendonitis 06/09/201804/14 Assessment & Plan (06/09/2018 11:35 AM BIOTECHNOLOGIST): Possible achilles tenopathy uncertain etiology. Labs ordered evaluating for possible muscle damage/inflammation, leukocytosis indicating possible infection, uric acid level as well. Also recommending ultrasound over MRI at this time for more acute evaluation of the tendon itself close follow-up outpatient regarding results of all testing indication for need for additional management. In the interim I did recommend RICE therapy, bracing/compression, naproxen with food twice daily, and certainly with any worsening little improvement in her symptoms with previous recommendations encouraged to call office for possible corticosteroid therapy until diagnostics received. Acute URI 09/22/2017 11/05/2017 Assessment & Plan (09/22/2017 2:29 PM CDT): Considering rapid strep is negative clinical presentation does correlate with possible strep pharyngitis recommended throat culture for further evaluation. In the interim I did recommend amoxicillin 875 twice daily for 10 day course certainly close monitoring outpatient we will follow up with her regarding the results of the throat culture need for changes in our management. Salt water gargles, use of humidifier at night, and then throat lozenges were recommended certainly pushing fluids as well follow-up as needed regarding condition in office Arthralgia of hip 08/03/2014 11/05/2017 Notalgia 08/03/2014 11/05/2017 Migraine 01/11/2014 11/05/2017 Overview (10/03/2016): MIGRNE UNSP WO NTRC MGRN Vitamin D deficiency 11/13/2013 018 Overview (10/03/2016): VITAMIN D DEFICIENCY NOS Immunizations Immunization Administration Dates Next Due Influenza, Quadrivalent, Spl it, Intramuscular 05/10/2016 Influenza, Trivalent, IM (MDV) 03/30/2012,2010 Influenza, Unspecified 08/26/2022(Deferr ed: Patient Refused),07/04/2022(Deferred: Patient Refused),05/07/2022(Deferred: Patient Refused),01/28/2022(Deferred: Patient Refused),01/28/2022(Deferred: Patient Refused),05/01/2021(Deferred: Patient Refused),04/10/2021,04/11/2020, 020,03/30/2019,04/27/2018,09/22/2017(D eferred: Patient ill today) Tdap 03/10/2008 ZOSTER Recombinant 11/17/2020,08/03/2020 Surgical History Surgery Date Site/Laterality Comments OTHER SURGICAL HISTORY rt knee surg CHOLECYSTECTOMY Cholecystectomy SECTION x2 section OTHER SURGICAL HISTORY pia Hip replacement L 1998, R 2005 EPIDURAL INJECTION LUMBOSACRAL 08/10/2014 N/A JOINT REPLACEMENT SECTION HIP SURGERY Left MELISSA/MELISSA REV HIP SURGERY 06/30/2005 - 06/29/2006 Right MELISSA Medical History Medical History Date Comments Hx Other Medical 01-ORTHO Hx Other Medical hip replacement left 2014 bj; Comments: total hip and bone grafting Hypertension Migraines Obesity Family History Medical History Relation Name Comments Heart attack Father Myocardial infa rction; Cause of : Myocardial infarction Heart disease Father Lupus Father Other Neg Hx No history of C ancer; Relation Name Status Comments Father (Age 62) Social History Tobacco Use Types Packs/Day Years Used Date Smoking Tobacco: Never Smokeless Tobacco: Never Tobacco Cessation:Counseling Given: Not Answered Alcohol Use Standard Drinks/Week Comments No 0 (1 standard drink = 0.6 oz pur e alcohol) PHQ-2 Answer Date Recorded PHQ-2 Total Score (If total score is 3 or more points, staff should administer the PHQ-9) 0 08/26/2022 Comments Unknown Sex and Gender Information Value Date Recorded Sex Assigned at Not on file Legal Sex Female 2:21 PM BIOTECHNOLOGIST Gender Identity Not on file Sexual Orientation Not on file 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 file Not on file Obstetrics History Last Filed Vital Signs Vital Sign Reading Time Taken Comments Blood Pressure 102/70 05/08/2023 8:01 AM BIOTECHNOLOGIST Pulse 82 05/08/2023 8:01 AM BIOTECHNOLOGIST Temperature 37.1 C (98.8 F) 05/08/2023 8:01 AM BIOTECHNOLOGIST Respiratory Rate 16 05/08/2023 8:01 AM BIOTECHNOLOGIST Oxygen Saturation 98% 05/08/2023 8:01 AM BIOTECHNOLOGIST Inhaled Oxygen Concentration - - Weight 87.5 kg (193 lb) 05/08/2023 8:01 AM BIOTECHNOLOGIST Height 160 cm (5' 3 ) 05/08/2023 8:01 AM BIOTECHNOLOGIST Body Mass Index 34.19 05/08/2023 8:01 AM BIOTECHNOLOGIST Plan of Treatment Health Maintenance Due Date Last Done Comments Cervical Cancer Screening 1965 Hepatitis C Screening 1965 Hepatitis B Screening 1983 Osteoporosis Screening-Bone Density Scan 11/10/2013 11/11/2011, 11/11/2011 DTaP/Tdap/Td Vaccine (2 - Td or Tdap) 03/10/2018 03/10/2008 Breast Cancer Screening-Mammogram 02/15/2024 02/14/2023, 03/01/2021, 10/01/2018, Additional history exists Influenza Vaccine (#1) 2024 , 04/11/2020, 04/10/2020, Additional history exists Depression Screening 05/08/2024 05/08/2023, 08/26/2022, 07/04/2022, Additional history exists Regular Well Visit/Exam 18-64 05/08/2024 05/08/2023, 05/07/2022, 05/01/2021, Additional history exists Colon Cancer Screening-Colonoscopy 12/09/2028 12/09/2018 Colon Cancer Screening-CT Colonography Discontinued 12/09/2018 Colon Cancer Screening-DNA Stool Discontinued 12/09/2018 Colon Cancer Screening-FIT Discontinued 12/09/2018 Colon Cancer Screening-Sigmoidoscopy Discontinued 12/09/2018 Zoster Vaccine Completed 11/17/2020, 08/03/2020 Pneumococcal vaccine <65 Aged Out No longer eligible based on patient's age to complete this topic Procedures Procedure Name Priority Date/Time Associated Diagnosis Comments SCREENING MAMMOGRAM BILATERAL W ASHER Schedule Routine, Read Routine (OP Routine) 02/14/2023 COLONOSCOPY Routine 12/09/2018 DEXA SCAN Routine 11/11/2011 from Last 3 Months or Most Recently Relevant to Health Maintenance Results * Screening Mammogram Bilateral W Asher (02/14/2023) Anatomical Region Laterality Modality Breast Bilateral Mammography us Generic External Data Provider IMG MAMMO PROCEDU RES Final Result * Colonoscopy (12/09/2018) Anatomical Region Laterality Modality Other us Historical Provider ENDOSCOPY PROCEDURES Sally l Result * DEXA SCAN (11/11/2011) HM DEXA Scan Normal us Historical Provider HEALTH MAINTENANCE Final Result from Last 3 Months or Most Recently Relevant to Health Maintenance Insurance [facility] Address: [place] [address] [facility] Address: [place] [address] [facility] Address: [address] [address] Care Teams Post Adoption Coordinator Relationship Specialty Start Date End Date Monika Llanos MD [address] [place] [address] [place] [address] PCP - General Family Medicine 01/14/22
--- OUTSIDE RECORDS SUMMARY | 2024-09-07 10:31 | XMS_ITS | Encounter Summary ---
Author Organization [facility] Address [address] [place] [address] Care Team Providers Care Scallop Raker Name Role Phone Bubba Hopkins MD Primary Care Provider [phone] Bubba Hopkins MD Primary Care Provider [phone] Bubba Hopkins MD Primary Care Provider [phone] Monika Llanos MD Primary Care Provide r Reason for Referral * Diagnostic Imaging (Routine) - Closed Specialty Diagnoses / Procedures Referred By Contac t Referred To Contact Procedures Dexa Axial Skeleton Bone Density 1 or 2 Site [facility] Health Information Management [address] [place] [address] Phone: tel: fax: [facility] Referral ID Status Reason Start Date Expiration Date Visits Re quested Visits Authorized [id number] Closed 02/15/2019 08/26/2020 1 1 Encounter Details Date Type Department Care Team (Late st Contact Info) Description 11/11/2011 Orders Only [facility] Health Information Management [address] [place] [id number] Bubba Hopkins MD [address] [place] [address] [place] [address] Social History Tobacco Use Types Packs/Day Years Used Date Smoking Tobacco: Never Assessed Comments Unknown Sex and Gender Information Value Date Recorded Sex Assigned at Not on file 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 Gender Identity Not on file Sexual Orientation Not on file documented as of this encounter Plan of Treatment Not on file documented as of this encounter Procedures Procedure Name Priority Date/Time Associated Diagnosis Comments DEXA AXIAL SKELETON BONE DENSITY 1 OR MORE SITES Schedule Routine, Read Routine (OP Routine) 11/11/2011 documented in this encounter Results * Dexa Axial Skeleton Bone Density 1 or 2 Site (11/11/2011) Anatomical Region Laterality Modality Body N/A Radiographic María ging us Historical Provider MD ROBINS DXA PROCEDURES Final Result documented in this encounter Visit Diagnoses Not on filedocumented in this encounter Care Teams Scallop Raker Relationship Specialty Start Date End Date Bubba Hopkins MD PCP - General 09/27/16 01/13/22 Bubba Hopkins MD PCP - General 03/19/12 09/26/16 Bubba Hopkins MD PCP - General 09/21/10 03/18/12 Monika Llanos MD [address] [place] [address] [place] [address] PCP - General Family Medicine 01/14/22 documented as of this encounter
--- OUTSIDE RECORDS SUMMARY | 2024-09-07 10:31 | XMS_ITS | Encounter Summary ---
Author Organization [facility] Address [address] [place] [address] Care Team Providers Care Route Supervisor Name Role Phone Unavailable Primary Care Provider Unavailabl e Encounter Details Date Type Department Care Team (Late st Contact Info) Description 12/10/2004 Outpatient Historical [facility] Internal Medicine 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
--- OUTSIDE RECORDS SUMMARY | 2024-09-07 10:31 | XMS_ITS | Clinical Summary ---
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
--- OUTSIDE RECORDS SUMMARY | 2024-09-07 10:31 | XMS_ITS | Referral Summary ---
Author Organization [facility] Medical Office Building A Address [address] [place] [address] Care Team Providers Care Signal Helper Name Role Phone Monika Llanos MD Primary Care Provide r Allergies No known active allergies Medications cholecalciferol (VITAMIN D3) 4,000 unit capsule 1 po daily 0 0 06/01/2015 Active MULTIVIT 03-[id number] 6-DHA ORAL Take by mouth Active losartan-hydroCH [...] 05/08/2023 Assessment & Plan (05/08/2023 8:31 AM NICK SETTER): New concern 2/2 muscle spasm Will get xray of the lumbar spine and right hip Sent flexeril 5mg Continue with heat and ibuprofen F/u in 2 months, if no improvement will get an MRI and refer to pain management Palpitations 07/04/2022 Assessment & Plan (08/27/2022 5:11 PM NICK SETTER): Will get records for holter and echo Recommend starting the metoprolol Still having palpitations Referral to cardio given Assessment & Plan (07/04/2022 6:28 PM NICK SETTER): New, worsening EKG in office showed PVCs 48hr holter monitor and echo Start metoprolol 12.5mg bid F/u in 2 weeks Pending results can consider cardio referral and stress test Encounter for wellness examination 05/06/2022 Assessment & Plan (05/07/2023 2:56 PM NICK SETTER): Labs reviewed and discussed Flu:gets through her job Colonoscopy:uptodate Pap smear:follows with ob Mammo:follows with ob F/u in 1 year for annual Assessment & Plan (05/07/2022 8:58 AM NICK SETTER): Ordered CBC, cmp, lipid, hgb a1c, TSH, and free t4 Flu:gets through her job Colonoscopy:uptodate Pap smear:follows with ob Mammo:follows with ob F/u in 1 year for annual Essential hypertension 09/22/2017 Assessment & Plan (05/07/2023 2:55 PM NICK SETTER): Bp in the office today BP Readings from Last 1 Encounters: 08/26/22 120/70 Continue current regimen of losartan hctz 50 12.5mg daily and metoprolol 12.5mg twice a day Recommend DASH diet, heart-healthy lifestyle, exercise. Discussed the risks of hypertension. F/u in 6 months Assessment & Plan (08/26/2022 3:21 PM NICK SETTER): Bp in the office today BP Readings from Last 1 Encounters: 08/26/22 120/70 Continue current regimen Recommend DASH diet, heart-healthy lifestyle, exercise. Discussed the risks of hypertension. F/u at annual Assessment & Plan (05/07/2022 8:44 AM NICK SETTER): Bp in the office today BP Readings [...] 09/22/2017 Assessment & Plan (05/08/2023 8:32 AM NICK SETTER): She was counseled on the importance of maintaining a healthy weight and the risks of obesity. Weight loss recommended. Encourage 150min/ week of exercise Encourage 1500 calories in a day for weight loss Assessment & Plan (06/09/2018 11:41 AM NICK SETTER): Heart healthy diet, increasing exercise (after this [...] sx after 48 hours antibiotics. Use OTC Romanian yogurt or probiotics with antibiotic course was advised. Right ankle tendonitis 06/09/201804/14 Assessment & Plan (06/09/2018 11:35 AM NICK SETTER): Possible achilles tenopathy uncertain etiology. Labs ordered [...] ill today) Tdap 03/10/2008 ZOSTER Recombinant 11/17/2020,08/03/2020 Social History Tobacco Use Types Packs/Day Years [...] on file Legal Sex Female 2:21 PM NICK SETTER Gender Identity Not on file Sexual Orientation Not on file 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 file Not on file Last Filed Vital Signs Vital Sign Reading Time Taken Comments Blood Pressure 102/70 05/08/2023 8:01 AM NICK SETTER Pulse 82 05/08/2023 8:01 AM NICK SETTER Temperature 37.1 C (98.8 F) 05/08/2023 8:01 AM NICK SETTER Respiratory Rate 16 05/08/2023 8:01 AM NICK SETTER Oxygen Saturation 98% 05/08/2023 8:01 AM NICK SETTER Inhaled Oxygen Concentration - - Weight 87.5 kg (193 lb) 05/08/2023 8:01 AM NICK SETTER Height 160 cm (5' 3 ) 05/08/2023 8:01 AM NICK SETTER Body Mass Index 34.19 05/08/2023 8:01 AM NICK SETTER Plan of Treatment Not on file Procedures Procedure Name Priority Date/Time Associated Diagnosis Comments SCREENING MAMMOGRAM BILATERAL W ASHER Schedule Routine, Read Routine (OP Routine) 02/14/2023 COLONOSCOPY Routine 12/09/2018 DEXA SCAN Routine 11/11/2011 from Last 3 Months or Most Recently Relevant to Health Maintenance Results * Screening Mammogram Bilateral W Asher (02/14/2023) Anatomical Region Laterality Modality Breast Bilateral Mammography Generic External Data Provider IMG MAMMO PROCEDU RES Final Result * Colonoscopy (12/09/2018) Anatomical Region Laterality Modality Other Historical Provider ENDOSCOPY PROCEDURES Sally l Result * DEXA SCAN (11/11/2011) DEXA Scan Normal Historical Provider MD HEALTH MAINTENANCE Final Result from Last 3 Months or Most Recently Relevant to Health Maintenance [facility] Care Teams Signal Helper Relationship Specialty Start Date End Date Monika Llanos MD [address] [place] [address] DR CAI [address] [place] [address] PCP - General Family Medicine 01/14/22
--- OUTSIDE RECORDS SUMMARY | 2024-09-07 10:31 | XMS_ITS | Encounter Summary ---
Author Organization [facility] Address [address] [place] [address] Phone Care Team Providers Care Editor City Name Role Phone Bubba Hopkins MD Primary Care Provider [phone] Monika Llanos MD Primary Care Provide r Encounter Details Date Type Department Care Team (Late st Contact Info) Description 09/22/2017 Orders Only [facility] ProviderMeeta MD [address] [place] [id number] Social History Tobacco Use Types Packs/Day Years Used Date Smoking Tobacco: Never Smokeless Tobacco: Never Alcohol Use Standard Drinks/Week Comments No 0 (1 standard drink = 0.6 oz pur e alcohol) Comments Unknown Sex and Gender Information Value Date Recorded Sex Assigned at Not on file Legal Sex Female 2:21 PM SOLAR INSTALLER PV Gender Identity Not on file Sexual Orientation Not on file documented as of this encounter Plan of Treatment Not on file documented as of this encounter Procedures Procedure Name Priority Date/Time Associated Diagnosis Comments DISCHARGE LABORATORY CUMULATIVE REPORT 09/22/2017 12:00 AM CDT documented in this encounter Results * DISCHARGE LABORATORY CUMULATIVE REPORT (09/22/2017 12:00 AM CDT) Narrative 09/22/2017 12:00 AM CDT Ordered by an unspecified provider. Historical Provider LAB BLOOD ORDERABLES Sally l Result documented in this encounter Visit Diagnoses Not on filedocumented in this encounter Care Teams Editor City Relationship Specialty Start Date End Date Bubba Hopkins MD PCP - General 09/27/16 01/13/22 Monika Llanos MD [address] [facility] [address] [place] [address] [place] [id number] PCP - General Family Medicine 01/14/22 documented as of this encounter
--- OUTSIDE RECORDS SUMMARY | 2024-09-07 10:31 | XMS_ITS | Encounter Summary ---
Author Organization [facility] Address [address] [place] [address] Care Team Providers Care Project Planner Name Role Phone Unavailable Primary Care Provider Unavailabl e Encounter Details Date Type Department Care Team (Late st Contact Info) Description 01/21/2005 Outpatient Historical [facility] Internal Medicine [address] [place] [address] Luis M Menon MD [address] [place] [address] Social History Tobacco Use Types Packs/Day Years Used Date Smoking Tobacco: Never Assessed Comments Unknown Sex and Gender Information Value Date Recorded Sex Assigned at Not on file Legal Sex Female 4:43 AM PLC PROGRAMMER Gender Identity Not on file Sexual Orientation Not on file documented as of this encounter Plan of Treatment Not on file documented as of this encounter Visit Diagnoses Not on filedocumented in this encounter
--- OUTSIDE RECORDS SUMMARY | 2024-09-07 10:31 | XMS_ITS | Encounter Summary ---
Author Organization [facility] Address [address] [place] [address] Care Team Providers Care Cartographic Aide Name Role Phone Unavailable Primary Care Provider Unavailabl e Encounter Details Date Type Department Care Team (Late st Contact Info) Description 01/21/2005 Outpatient Historical [facility] Internal Medicine 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
[2024-09-07 10:39] LABS: Alanine Aminotransferase 29 U/L (6-35); Albumin Level 4.5 g/dL (3.5-5.1); Alkaline Phosphatase 80 U/L (38-126); Anion Gap 9 mmol/L (4-12); Aspartate Amino Transferase 25 U/L (14-36); Bilirubin,Total 0.9 mg/dL (0.2-1.3); Blood Urea Nitrogen 17 mg/dL (7-17); Calcium 9.6 mg/dL (8.4-10.2); Carbon Dioxide 28 mmol/L (22-30); Chloride 105 mmol/L (98-107); Cholesterol 201 mg/dL (0-200); Estimated Glomerular Filt Rate > 60; Glucose 87 mg/dL (65-110); HDL Direct 36 mg/dL; Potassium 3.8 mmol/L (3.4-5.0); Sodium 142 mmol/L (137-145); Triglycerides 126 mg/dL (<150)
[2024-09-07 10:50] LABS: LDL Cholesterol Direct 114 mg/dL
[2024-09-08 10:13] LABS: CRP, High Sensitivity 4.8 mg/L
== END 2024-09-07 09:35 | disposition home or self-care (01) ==
LOC: ANHLAB 09:36
PROVIDERS: PCP Family Medicine; Visit Provider Family Medicine
DX: G43.909 Migraine, unspecified, not intractable, without status migrainosus (principal); I10 Essential (primary) hypertension; N95.1 Menopausal and female climacteric states; Z00.00 Encounter for general adult medical examination without abnormal findings
CPT/HCPCS: 36415; 80053; 80061; 85027; 86141